=== PATIENT | female | born 1945 | race Caucasian/White ===

== ENCOUNTER 2016-12-30 11:41 | Emergency (ER) | payer OTHER ==
[2016-12-30] MEDS ORDERED: KETOROLAC TROMETHAMINE 30 MG/ML VIAL ONE (12:08)
[2016-12-30] MEDS ORDERED: DIPHENHYDRAMINE 50 MG/ML VIAL ONE (12:09)
[2016-12-30] MEDS ORDERED: NORMAL SALINE 250 ML IV ONE (12:09)
[2016-12-30 12:11] LABS: BASOPHIL# 0.1 X 10^3uL (0.0-0.1); BASOPHILS 1.8 % (0.0-2.0); EOSINOPHILS# 0.2 X 10^3uL (0.0-0.4); HEMATOCRIT 46.3 % (36.0-48.0); HEMOGLOBIN 15.5 g/dL (12.0-16.0); LYMPHOCYTES 31.8 % (20.0-40.0); LYMPHOCYTES# 2.3 X 10^3uL (0.8-3.8); MEAN CELL VOLUME 87.5 fL (80.0-100.0); MEAN CORPUS. HGB CONCENTRATION 33.5 g/dL (32.0-36.0); MEAN CORPUSCULAR HEMOGLOBIN 29.3 pg (29.0-35.0); MONOCYTES 7.4 % (2.0-10.0); MONOCYTES# 0.5 X 10^3uL (0.2-1.0); NEUTROPHILS# 4.1 X 10^3uL (2.6-6.7); RED BLOOD COUNT 5.29 X 10^6uL (4.20-6.10); RED CELL DISTRIBUTION WIDTH 12.1 % (11.5-14.5); WHITE BLOOD COUNT 7.2 X 10^3uL (3.9-10.7)
[2016-12-30 12:25] LABS: A/G RATIO 1.4; ALBUMIN 4.4 g/dL (3.5-5.0); BILIRUBIN, TOTAL 0.6 mg/dL (0.2-1.3); CALCIUM 9.9 mg/dL (8.4-10.2); CREATININE 1.2 mg/dL (0.5-1.0); POTASSIUM 4.2 mmol/L (3.5-5.1); TOTAL PROTEIN 7.6 g/dL (6.3-8.2)
[2016-12-30] MEDS ORDERED: HYDROmorphone HCL 1 MG/ML SYR ONE (12:57)
--- NOTE | 2016-12-30 13:06 | CT REPORT ---
HISTORY: Headache. Migraine. COMPARISON: None. TECHNIQUE: Axial non-contrast images obtained from skull vertex through foramen magnum. Dose reduction technique was utilized. FINDINGS: Brain volume and ventricular size are normal. A 4.0 x 2.5 cm hematoma involves the left occipitoparietal region. There is a halo slightly hyperdens e material that could represent slightly older hemorrhage and a moderate amount of surrounding edema is present. There is slight rightward bowing of the posterior falx, but there is no displacement of t he interventricular septum. A small amount of subdural hemorrhage is present along the left side of t he posterior falx. A 1.8 x 0.8 cm hematoma is present in the posterior left temporal lobe. There is a small amount of kendall rrounding edema. No other intracranial hemorrhage is demonstrated. Schwartz and white matter differentiation is normal throughout the remainder of the brain. The calvarium is intact. Mucosal thickening involves the right ethmoid and maxillary sinuses. IMPRESSION: 1. Large left occipitoparietal hematoma, which appears mostly acute, but may have a small halo of sub acute component. Surrounding edema and slight diyt-az-keupu bowing of the posterior falx. Small amoun t of subdural hemorrhage along the left side of the falx. 2. Small hemorrhage in the posterior left temporal lobe, with a small amount of surrounding edema. Th e hemorrhages may be due to underlying infarcts or masses. The patient is noted to be normotensive. A neurysmal bleed is unlikely, given the separate areas of hemorrhage. MRI of the brain without and wit h contrast is recommended for further evaluation. 3. Inflammatory disease of the right ethmoid and maxillary sinuses. Critical findings were personally communicated to Dr. Bolivar Sanchez on 12/30/2016 at 12:40 PM. Final Electronic Signature: This report was electronically signed by Ash Strickland MD on 12/30/2016 1:04 PM. brendan /
--- NOTE | 2016-12-30 13:36 | ER PHYSICIAN DOCUMENTATION ---
Physician Documentation [facility] Name:Trixie Baker Age:71 yrs Sex:Female :1945 Arrival Date:12/30/2016 Time:11:41 BedTrauma-A Private MD:Hardeep Ramsey ED, Scott Disposition: 12/30/16 13:07 Transfer ordered to [facility]. Diagnosis is Intracranial Hemorrhage. - Reason for transfer: Higher level of care. - Accepting physician is Neurology sales demonstrator to admit per GEENA Wright. - Condition is Critical. - Problem is new. - Symptoms are unchanged. COBRA Form completed? Yes Transfer - Mode of Transportation Ambulance HPI: 12/30 12:59 This 71 yrs old Female presents to ER via Private Vehicle with complaints of sc Headache > 24hrs Old. 12:59 This 71 yrs old Female presents to ER via Private Vehicle with complaints of sc Headache. 12:59 The patient complains of pain to the forehead. The patient describes the headache as sc crushing. Onset: The symptoms/episode began/occurred just prior to arrival. Associated signs and symptoms: The patient has no apparent associated signs or symptoms. Severity of symptoms: At its worst the pain was severe, in the emergency department the pain is unchanged. Headache History: The patient has had previous headaches and this one is similar to previous episodes. The symptoms are alleviated by nothing. The patient has experienced similar episodes in the past, a few times, but today's symptoms are worse, today's symptoms are similar. Historical: - Allergies: PENICILLINS; - Home Meds: 1. aspirin 81 mg oral tab once daily 2. Oxybutynin Chloride Oral 3. pantoprazole oral 4. fenofibrate micronized oral 5. amlodipine oral - PMHx: HYPERTENSION; over active bladder; HERNIA; Dizziness - Vertigo (October 30, 2015); Dehydration (October 30, 2015); Nausea (October 30, 2015); - PSHx: tubes tied; TUBAL LIGATION; TONSILLECTOMY; - Tetanus: unknown. - Ebola Screening: : Patient negative for fever greater than or equal to 101.5 degrees Fahrenheit, and additional compatible Ebola Virus Disease symptoms. Patient denies exposure to infectious person. Patient denies travel to an Ebola-affected area in the 21 days before illness onset. No symptoms or risks identified at this time. . - Immunization history: Unable to Obtain. - Social history: Smoking status: Patient states former smoker of tobacco. Patient uses alcohol occasionally. ROS: 13:04 Constitutional: Negative for fever, chills, and weight loss. sc Eyes: Negative for injury, pain, redness, and discharge. ENT: Negative for injury, pain, and discharge. Neck: Negative for injury, pain, and swelling. Cardiovascular: Negative for chest pain, palpitations, and edema. Respiratory: Negative for shortness of breath, cough, wheezing, and pleuritic chest pain. Back: Negative for injury and pain. 13:04 Skin: Negative for injury, rash, and discoloration. sc 13:04 Neuro: Positive for headache. Exam: Head/Face: Normocephalic, atraumatic. ENT: Nares patent. No nasal discharge, no septal abnormalities noted. Tympanic membranes are normal and external auditory canals are clear. Oropharynx with no redness, swelling, or masses, exudates, or evidence of obstruction, uvula midline. Mucous membranes moist. Neck: Trachea midline, no thyromegaly or masses palpated, and no cervical lymphadenopathy. Supple, full range of motion without nuchal rigidity, or vertebral point tenderness. No meningismus. Chest/axilla: Normal chest wall appearance and motion. Nontender with no deformity. No lesions are appreciated. Cardiovascular: Regular rate and rhythm with a normal S1 and S2. No gallops, murmurs, or rubs. Normal PMI, no JVD. No pulse deficits. Respiratory: Lungs have equal breath sounds bilaterally, clear to auscultation and percussion. No rales, rhonchi or wheezes noted. No increased work of breathing, no retractions or nasal flaring. Abdomen/GI: Soft, non-tender, with normal bowel sounds. No distension or tympany. No guarding or rebound. No evidence of tenderness throughout. Back: No spinal tenderness. No costovertebral tenderness. Full range of motion. 13:04 Skin: Warm, dry with normal turgor. Normal color with no rashes, no lesions, and no sc evidence of cellulitis. 13:04 Constitutional: The patient appears in obvious distress, severely distressed. 13:04 Eyes: Periorbital structures: no acute changes, Pupils: equal, round, and reactive to light and accomodation, Extraocular movements: patient with photophobia, cannot test. 13:10 Neuro: Orientation: unable to test, Gait: unable to assess. sc Vital Signs: 11:44 BP 160 / 79 (auto/); tg 11:57 Pulse 75 MON; Resp 22; tg 12:12 Pulse 73 MON; Resp 25; tg 12:16 BP 132 / 75 (auto/); tg 12:22 Pulse 85 MON; Resp 23; tg 13:00 BP 126 / 75 (auto/); tg 13:02 Pulse 74 MON; Resp 20; Temp 97.9(O); Pulse Ox 96% on 2 lpm NC; Weight 59.87 kg (R); tg Height 61 in. (154.94 cm); Pain 3/10; 13:02 Body Mass Index 24.94 (59.87 kg, 154.94 cm) tg Yohan Coma Score: 13:05 Eye Response: spontaneous(4). Verbal Response: oriented(5). Motor Response: obeys sc commands(6). Total: 15. MDM: 12:05 Patient medically screened. ks 13:05 Differential diagnosis: intracerebral hemorrhage, subdural hematoma. Data reviewed: ks vital signs, nurses notes, lab test result(s), radiologic studies, and as a result, I will *Transfer Patient. Counseling: I had a detailed discussion with the patient and/or guardian regarding: the historical points, exam findings, and any diagnostic results supporting the discharge/admit diagnosis, lab results, radiology results, the need to transfer to another facility. Physician consultation: Noah Wright was called at 13:06, was contacted at 13:06, regarding patient's condition, after a discussion of the case, a recommendation for transfer for higher level of care is made. 12/30 12:14 Order name: CBC AUTO DIF, MDIF/RMOR IF IND; Complete Time: 13:11 EDMS 12/30 12:25 Order name: COMPREHENSIVE METABOLIC PANEL; Complete Time: 13: EDMS 12/30 12:38 Order name: CAT SCAN; HEAD W/O CON [id number] EDMS 12/30 12:38 Order name: CAT SCAN HEAD W/O CON [id number]; Complete Time: 13:11 EDMS 12/30 13:08 Order name: CAT SCAN; HEAD W/O CON [id number]; Complete Time: 13:11 EDMS 12/30 13:03 Order name: Oxygen; Complete Time: 13:03 tg Dispensed Medications: 12:11 Drug: Benadryl 25 mg; Route: IVP; Site: right antecubital; tg 12:53 Follow up: Response: No adverse reaction; No change in condition tg 12:11 Drug: NS 0.9% 1000 ml; Route: IV; Rate: bolus; Site: right antecubital; Delivery: tg [place] Tubing; 12:54 Follow up: IV Status: Completed infusion; IV Intake: 500ml tg 12:20 Drug: Compazine 10 mg; Volume: 250 ml; Route: IVPB; Infused Over: 20 mins; Site: right tg antecubital; Delivery: Pump; 12:54 Follow up: IV Status: Completed infusion; IV Intake: 250ml tg 12:47 Drug: Dilaudid 1 mg; Route: IVP; Rate: 0.33 mg/min; Infused Over: 3 mins; Site: right rs antecubital; 12:58 Follow up: Response: No adverse reaction; Pain is decreased rs 12:53 CANCELLED (Other Intervention Used): Toradol 30 mg IVP once tg Signatures: Jeferson Schwartz RN RN tg Vandana Dupont RN RN rs Bolivar Sanchez MD MD ks
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
[2016-12-30] MEDS ORDERED: ONDANSETRON HCL 4 MG/2 ML VIAL ONE (16:30)
== END 2016-12-30 13:36 | disposition short-term general hospital (02) ==
LOC: ER 11:41
DX: I62.9 Nontraumatic intracranial hemorrhage, unspecified (principal); I10 Essential (primary) hypertension; H53.143 Visual discomfort, bilateral; Z79.899 Other long term (current) drug therapy; Z79.82 Long term (current) use of aspirin; Z99.89 Dependence on other enabling machines and devices; Z99.81 Dependence on supplemental oxygen; Z74.3 Need for continuous supervision
CPT/HCPCS: 70450; 80053; 85025; 96365; 96375; 99285; J1170; J1200; J1885; J2405; J7050